=== PATIENT | female | born 2005 | race Two or more races ===

== ENCOUNTER 2024-03-18 22:45 | Emergency (ER) | payer MEDICAID, SELFPAY ==
[2024-03-18 22:46] VITALS: BMI 37.0
[2024-03-18 23:34] VITALS: BP 121/83; PULSE 102; RESP 20; TEMP 37.5; O2SAT 97
--- NOTE | 2024-03-18 23:44 | EDNOTE_ITS ---
<Statement entered by Meredith Donahue MD - 03/19/24 19:44> As co-signing physician, I was present and available for consult prn. I concur with the plan and care as documented by the midlevel provider. ED Wound/Laceration-RME/HPI General Chief Complaint: Wound Recheck / Suture Removal Stated Complaint: WOUND OPEN 02/20 Time Seen by Provider: 03/18/24 23:22 Source: patient Arrival date/time: 03/18/24 22:45 18-year-old female presents emergency department complaining of open surgical incision patient recently had done on February [address] Pierce. Patient denies any fever, chills, nausea vomiting, diarrhea, abdominal pain, or any other associated symptom. Mode of arrival: ambulatory Limitations: no limitations Related Data Home Medications ?Medication ?Instructions ?Recorded ?Confirmed vit no.95-ferrous 1 tab PO QDAY 02/01/24 02/20/24 fumarate 28 mg-folic acid 800 mcg tablet () Allergies Allergy/AdvReac Type Severity Reaction Status Date / Time No Known Allergies Allergy Verified 02/18/24 06:07 Review of Systems Review of Systems Systems Reviewed: All systems reviewed, normal except as documented Constitutional Constitutional: Reports system reviewed and no additional complaints, except as documented, Denies body ache(s), Denies chills and Denies fever(s) Eyes Eyes: Reports system reviewed and no additional complaints, except as documented and Denies change in vision ENT Ears, Nose, Mouth, and Throat: Reports system reviewed and no additional complaints, except as documented, Denies disequilibrium, Denies dizziness, Denies sore throat and Denies vertigo Cardiovascular Cardiovascular: Reports system reviewed and no additional complaints, except as documented, Denies chest pain and Denies dyspnea Respiratory Respiratory: Reports system reviewed and no additional complaints, except as documented, Denies chest congestion, Denies cough and Denies dyspnea Gastrointestinal Gastrointestinal: Reports system reviewed and no additional complaints, except as documented, Denies abdominal pain, Denies nausea and Denies vomiting Musculoskeletal Musculoskeletal: Reports system reviewed and no additional complaints, except as documented, Denies abnormal gait and Denies arthralgias Integumentary/Breasts Skin/Breast: Reports system reviewed and no additional complaints, except as documented, Denies erythema, Denies rash and Reports wounds (Wound dehiscence) Neurologic Neurologic: Reports system reviewed and no additional complaints, except as documented, Denies abnormal gait, Denies disequilibrium, Denies dizziness and Denies vertigo Past Medical History Past Medical History NEUROLOGIC: Negative Neurological Disorders CARDIAC: Positive Cardiac Disorders (murmurs x 5 resolved 7yrs old); Negative Congestive Heart Failure RESPIRATORY: Positive Asthma (6-13yrs); Negative Chronic Obstructive Pulmonary Disease (COPD), Bronchitis, Emphysema, Pneumonia, Pulmonary Fibrosis, Cystic Fibrosis, Tuberculosis, Pulmonary Embolism, Pulmonary Edema or Sleep Apnea GASTROINTESTINAL: Negative Gastrointestinal Disorders GENITOURINARY: Negative Genitourinary Disorders or Renal Disease REPRODUCTIVE: Negative Endometriosis, Pelvic Inflammatory Disease, Previous Pregnancies or Uterine Prolapse MUSCULOSKELETAL: Negative Musculoskeletal Disorders ENDOCRINE: Negative Endocrine Disorders, Diabetes Mellitus Type 1 or Diabetes Mellitus Type 2 HEMATOLOGIC: Negative Blood Disorders OTHER HISTORY: Negative Autoimmune Disease, Anesthesia Reactions, Organ Transplant, MRSA, Clostridium Difficile or Cancer Family History FAMILY HISTORY: Negative Family Psychiatric Problems, Family Respiratory Disorders, Family Cardiac Disorders, Family Gastrointestinal Problems, Family Cancer, Family Surgery or Family Anesthesia Reaction Surgical History SURGICAL: Negative Endocrine Surgery, Ear Surgery, Abdominal Surgery, Nephrectomy, Joint Replacement, Neurologic Surgery, Mastectomy, Section, Vasectomy or Organ Transplant Social History SMOKING STATUS: Never smoker SECOND HAND EXPOSURE: No ED Exam General Limitations: Present no limitations General appearance: Present alert and in no apparent distress Head Head exam: Present atraumatic Eye Eye exam: Present normal appearance, PERRL and EOMI ENT ENT exam: Present normal exam, normal oropharynx and mucous membranes moist Neck Neck exam: Present normal inspection, full ROM and trachea midline Chest Chest inspection: Present normal inspection and symmetric chest wall rise Respiratory Respiratory exam: Present normal lung sounds bilaterally Cardiovascular Cardiovascular exam: Present regular rate, normal rhythm and normal heart sounds Abdominal Exam Abdominal exam: Present soft and normal bowel sounds Extremities Exam Extremities exam: Present normal inspection and full ROM Back Exam Back exam: Present normal inspection and full ROM Neurological Exam Neurological exam: Present alert, oriented X3 and CN II-XII intact Psychiatric Psychiatric exam: Present normal affect and normal mood Skin Skin exam: Present warm, dry, intact and normal color Course Quality Measures none Vital Signs Vital signs: Vital Signs Temperature 99.5 F 03/18/24 23:34 Pulse Rate 102 H 03/18/24 23:34 Respiratory Rate 20 03/18/24 23:34 Blood Pressure 121/83 03/18/24 23:34 Pulse Oximetry (%) 97 03/18/24 23:34 Oxygen Delivery Method Room Air 03/18/24 23:34 97% room air within normal limit Wound / Laceration MDM Narrative MDM Narrative:: 18-year-old female presents emergency department complaining of open surgical incision patient recently had done on February [address] Pierce. Patient denies any fever, chills, nausea vomiting, diarrhea, abdominal pain, or any other associated symptom. Skin exam no obvious dehiscence of section or signs of infection. No drainage, erythema, or edema observed to surgical incision. Patient is obese female and incision is covered by abdominal fold which may be trapping moisture. Patient instructed to air out abdominal fold and keep incision clean and dry throughout the day. Patient discharged back to the follow-up with SENIOR CONSULTANT Dr. Pierce and return to emergency department for any worsening symptoms or as needed. Patient data External records reviewed:: [facility] previous records Clinical information provided by:: patient Social determinants that could affect healthcare access:: none Patient has the following chronic illnesses:: None How is presenting disease/condition affected by chronic disease/condition?: no chronic disease Evaluation data The following diagnostics were reviewed and interpreted by me:: other (specify) (N/A) Lab and/or radiology exams considered but not ordered:: N/A Interpretation Summary: N/A Medications / Prescriptions Medications or Prescriptions considered but not ordered:: N/A Medication administrations:: N/A Consultations Consultation(s) initiated? (list below): No Diagnosis Wound Differential Diagnosis: laceration, abscess, abrasion and other (Dehiscence of surgical wound) Most likely diagnosis given after review of the tests above:: section wound complication Admission Indicated Admission indicated?: not indicated Admission Request Was there a request for admission?: No Disposition Plan Disposition Plan: Discharge Discharge Attestation Discharge Attestation: The patient and all family members were given an opportunity to ask questions and understood the discharge instructions. Discharge instructions specifically effects, indications for sooner follow up or return to the emergency department, and the expected course of current diagnosis. Patient condition: Stable Discharge Plan Plan Patient Disposition: HOME (Self Care) Disposition Comment: Stable Prescriptions/Referrals Prescriptions/Med Rec: No Action PNV cmb#95-ferrous fumarate-FA [] 28 mg iron- 800 mcg tablet 1 tab PO QDAY Patient Comments: TOME BEENA TABLETA TODOS LOS VILLARREAL POR 90 VILLARREAL Referrals: Temporary Provider,ED [Physician] - In 1 week Problem List Clinical Impression: section wound complication Patient/Caregiver Discharge Instructions Discharge Activity: activity as tolerated Additional Instructions: Keep wound clean and dry. Air dry wound twice a day to avoid moisture buildup. No obvious signs of wound dehiscence. Follow-up with Dr. Pierce SENIOR CONSULTANT in 1 to 3 days. Return to the emergency department for any worsening symptoms or as needed. Print Language: Polish Stand Alone Forms: [employer] Award Info., Patient Portal Info Letter PA/THERMOSTATIC CONTROLS SUPERVISOR Supervising Physician PA/THERMOSTATIC [employer]S SUPERVISOR Supervising Physician: Dr. Donahue
== END 2024-03-19 00:18 | disposition home or self-care (01) ==
PROVIDERS: Emergency Provider Emergency Medicine; PCP Family Medicine
DX: O90.0 Disruption of cesarean delivery wound (principal)
CPT/HCPCS: 99281

== ENCOUNTER 2025-03-16 04:43 | Emergency (ER) | payer SELFPAY ==
[2025-03-16 04:43] VITALS: BP 145/86; PULSE 100; RESP 18; TEMP 36.9; O2SAT 95; BMI 45.1
--- NOTE | 2025-03-16 05:21 | PD.EDEAR ---
ED Ear RME/HPI General Chief complaint: Ear Stated complaint: DECREASED HEARING TO LEFT EAR WITH PAIN Time Seen by Provider: 03/16/25 05:10 Arrival date/time: 03/16/25 04:43 19F with no significant PMH presents to ED with several days of reduced L ear hearing and pain. Limitations: no limitations Related Data Home Medications ?Medication ?Instructions ?Recorded ?Confirmed vit no.95-ferrous 1 tab PO QDAY 02/01/24 02/20/24 fumarate 28 mg-folic acid 800 mcg tablet () Previous Rx's ?Medication ?Instructions ?Recorded uoziloki-oaiuavrri-fuzhqgube 3.5 4 drp otic (ear) QID 7 days #10 mL 03/16/25 mg-10,000 unit/mL-1 % ear drops,susp Allergies Allergy/AdvReac Type Severity Reaction Status Date / Time No Known Allergies Allergy Verified 02/18/24 06:07 Review of Systems Review of Systems Systems Reviewed: All systems reviewed, normal except as documented ENT Ears, Nose, Mouth, and Throat: Reports as per HPI and Reports otalgia Past Medical History Past Medical History NEUROLOGIC: Negative Neurological Disorders CARDIAC: Positive Cardiac Disorders (murmurs x 5 resolved 7yrs old); Negative Congestive Heart Failure RESPIRATORY: Positive Asthma (6-13yrs); Negative Chronic Obstructive Pulmonary Disease (COPD), Bronchitis, Emphysema, Pneumonia, Pulmonary Fibrosis, Cystic Fibrosis, Tuberculosis, Pulmonary Embolism, Pulmonary Edema or Sleep Apnea GASTROINTESTINAL: Negative Gastrointestinal Disorders GENITOURINARY: Negative Genitourinary Disorders or Renal Disease REPRODUCTIVE: Negative Endometriosis, Pelvic Inflammatory Disease, Previous Pregnancies or Uterine Prolapse MUSCULOSKELETAL: Negative Musculoskeletal Disorders ENDOCRINE: Negative Endocrine Disorders, Diabetes Mellitus Type 1 or Diabetes Mellitus Type 2 HEMATOLOGIC: Negative Blood Disorders OTHER HISTORY: Negative Autoimmune Disease, Anesthesia Reactions, Organ Transplant, MRSA, Clostridium Difficile or Cancer Family History FAMILY HISTORY: Negative Family Psychiatric Problems, Family Respiratory Disorders, Family Cardiac Disorders, Family Gastrointestinal Problems, Family Cancer, Family Surgery or Family Anesthesia Reaction Surgical History SURGICAL: Negative Endocrine Surgery, Ear Surgery, Abdominal Surgery, Nephrectomy, Joint Replacement, Neurologic Surgery, Mastectomy, Section, Vasectomy or Organ Transplant Social History SMOKING STATUS: Never smoker SECOND HAND EXPOSURE: No ED Exam General Limitations: Present no limitations General appearance: Present alert and in no apparent distress Head Head exam: Present atraumatic ENT ENT exam: Present mucous membranes moist Expanded ENT Exam External ear exam: Present external tenderness (L tragal) TM/Canal exam: Left TM: canal tenderness Neck Neck exam: Present normal inspection, full ROM and trachea midline Chest Chest inspection: Present normal inspection and symmetric chest wall rise Neurological Exam Neurological exam: Present alert and oriented X3 Psychiatric Psychiatric exam: Present normal affect and normal mood Skin Skin exam: Present warm, dry, intact and normal color Course Quality Measures none Vital Signs Vital signs: Vital Signs Temperature 98.4 F 03/16/25 04:43 Pulse Rate 100 03/16/25 04:43 Respiratory Rate 18 03/16/25 04:43 Blood Pressure 145/86 H 03/16/25 04:43 Pulse Oximetry (%) 95 03/16/25 04:43 Oxygen Delivery Method Room Air 03/16/25 04:43 O2 at 95% on RA and WNLs Ear MDM Narrative MDM Narrative:: 19F with no significant PMH presents to ED with several days of reduced L ear hearing and pain. Physical exam reveals L tragal/canal tenderness and swelling. TM cannot be visualized. R Ear exam normal. Patient is afebrile, calm, and alert. Meds and extension course counselor given. Patient data External records reviewed:: [facility] previous records Clinical information provided by:: patient Social determinants that could affect healthcare access:: none Patient has the following chronic illnesses:: none How is presenting disease/condition affected by chronic disease/condition?: no chronic disease Evaluation data The following diagnostics were reviewed and interpreted by me:: other (specify) (none) Lab and/or radiology exams considered but not ordered:: not ordered Interpretation Summary: n/a Medications / Prescriptions Medications or Prescriptions considered but not ordered:: not ordered Medication administrations:: n/a Consultations Consultation(s) initiated? (list below): No Diagnosis Ear Differential Diagnosis: otitis externa, otitis media, foreign body in ear, ruptured TM and cerumen impaction Most likely diagnosis given after review of the tests above:: OE Admission Indicated Admission indicated?: not indicated Admission Request Was there a request for admission?: No Disposition Plan Disposition Plan: Discharge Discharge Attestation Discharge Attestation: The patient and all family members were given an opportunity to ask questions and understood the discharge instructions. Discharge instructions specifically effects, indications for sooner follow up or return to the emergency department, and the expected course of current diagnosis. Patient condition: Stable Discharge Plan Plan Patient Disposition: HOME (Self Care) Discharge Disposition comment: Stable Prescriptions/Referrals Prescriptions/Med Rec: New kyczbbsc-kqjynqyvx-RT 3.5-10,000-1 mg/mL-unit/mL-% drops,suspension 4 drp otic (ear) QID 7 Days Qty: 10 0RF No Action PNV no.95-ferrous fumarate-FA [] 28 mg iron- 800 mcg tablet 1 tab PO QDAY Patient Comments: TOME BEENA TABLETA TODOS LOS VILLARREAL POR 90 VILLARREAL Problem List Clinical Impression: Otitis externa Patient/Caregiver Discharge Instructions Education Materials: ED External Ear Infection (Adult) Additional Instructions: Please follow-up with PCP within 24-48 hours and return immediately if symptoms worsen. Keep drops in ear at least 1 min each time. Print Language: Wolof Stand Alone Forms: Patient Portal Info Letter JONATAN/MARTHA Supervising Physician JONATAN/MARTHA Supervising Physician: Dr. Bo
== END 2025-03-16 05:22 | disposition home or self-care (01) ==
PROVIDERS: Emergency Provider Emergency Medicine
DX: H60.92 Unspecified otitis externa, left ear (principal)
CPT/HCPCS: 99281